=== PATIENT | female | born 1990 | race Caucasian/White ===

== ENCOUNTER 2020-10-26 15:33 | Emergency (ER) | payer MEDICAID ==
[~2020-10-26] VITALS: Ht 162.6 cm; Wt 51.0 kg
[2020-10-26 16:10] VITALS: BP 108/73
[2020-10-26] MEDS ORDERED: AMOX500C2 PO (16:16)
[2020-10-26] MEDS ORDERED: NAPR-56 PO (16:16)
== END 2020-10-26 16:22 | disposition home or self-care (01) ==
LOC: ER 15:34
DX: K04.7 Periapical abscess without sinus (principal); K08.89 Other specified disorders of teeth and supporting structures; F17.200 Nicotine dependence, unspecified, uncomplicated; F12.90 Cannabis use, unspecified, uncomplicated; F15.90 Other stimulant use, unspecified, uncomplicated; Z79.2 Long term (current) use of antibiotics; Z79.899 Other long term (current) drug therapy
CPT/HCPCS: 99283

== ENCOUNTER 2021-02-15 19:35 | Emergency (ER) | payer MEDICAID ==
[~2021-02-15] VITALS: Ht 162.6 cm; Wt 46.5 kg
[2021-02-15 19:39] VITALS: BP 112/77
[2021-02-15] MEDS ORDERED: CLIN150C8 PO (20:00)
== END 2021-02-15 20:06 | disposition home or self-care (01) ==
LOC: ER 19:36
DX: K04.7 Periapical abscess without sinus (principal); F17.200 Nicotine dependence, unspecified, uncomplicated; F12.90 Cannabis use, unspecified, uncomplicated; F15.90 Other stimulant use, unspecified, uncomplicated; Z79.2 Long term (current) use of antibiotics
CPT/HCPCS: 99283

== ENCOUNTER 2022-04-11 16:22 | Emergency (ER) | payer MEDICAID ==
[~2022-04-11] VITALS: Ht 162.6 cm; Wt 45.5 kg
[~2022-04-11 16:22] MED LIST: CLIN150C8 PO
[2022-04-11 16:25] VITALS: BP 109/81
[2022-04-11] MEDS ORDERED: HYDROcodone/acetaminophen 10/325mg tab PO ONE (16:45)
[2022-04-11] MEDS ORDERED: ketorolac trometh. 30mg/ml inj. IM ONE (16:45)
[2022-04-11] MEDS ORDERED: amox tr/potassium clavulanate 875/125mg TAB PO ONE (16:45)
[2022-04-11] MEDS ORDERED: AMOX-580 PO (16:47)
[2022-04-11] MEDS ORDERED: HYDR-3965 PO (16:47)
[2022-04-11] MEDS ORDERED: IBUP-1984 PO (16:47)
== END 2022-04-11 17:07 | disposition home or self-care (01) ==
LOC: ER 16:22
DX: K04.7 Periapical abscess without sinus (principal); K08.89 Other specified disorders of teeth and supporting structures; F12.90 Cannabis use, unspecified, uncomplicated; F15.20 Other stimulant dependence, uncomplicated
CPT/HCPCS: 96372; 99283; J1885